=== PATIENT | male | born 1980 | race Caucasian/White ===

== ENCOUNTER 2016-11-01 14:45 | Emergency (ER) | payer OTHER ==
[~2016-11-01] VITALS: Ht 175.3 cm; Wt 72.6 kg
[2016-11-01] MEDS ORDERED: HYDROCODONE/APAP 5/325MG 1 EACH TABLET ONE (15:15)
[2016-11-01] MEDS ORDERED: HYDROCODONE/APAP 5/325MG 1 EACH TABLET PO ONE (15:30)
[2016-11-01 16:39] VITALS: BP 118/85
== END 2016-11-01 16:43 | disposition home or self-care (01) ==
LOC: ER 14:50
DX: M25.532 Pain in left wrist (principal)
CPT/HCPCS: 29125; 73110; 73590; 73610; 73630; 99284; A4606; Z7610